=== PATIENT | female | born 1965 | race Hispanic/Latino ===

== ENCOUNTER 2018-09-24 23:49 | Inpatient (IN) | payer SELFPAY ==
[~2018-09-24] VITALS: Ht 157.5 cm; Wt 53.1 kg
[~2018-09-24 23:49] MED LIST: LISINOPRIL10 MG; TRUVADA 200 MG1 EACH; VIRAMUNE200 MG
--- OUTSIDE RECORDS SUMMARY | 2018-09-24 23:52 | XMS REPORT ---
Author Author Admin, Troy Organization [facility] Adult Medicine Address [address] [place] [address] Phone Allergies, Adverse Reactions, Alerts Allergy Name Reaction Description Start Date Severity Status Provider No Known Allergies Luzmaria Rivera COA Conditions or Problems Problem Name Problem Code Onset Date Status Entry Date Provider Comment Standard Description Annotate SPECIAL SCREENING EXAMINATION OTH SPEC VIRAL DZ V73.89 Active Migue Atwood MD Screening examination for other specified viral diseases Screening mammogram V76.12 Active Elena Cerna LAB REP Other screening mammogram Allergic rhinitis 477.9 Active Elena Cerna LAB REP Allergic rhinitis, cause unspecified Screening for colon cancer V76.51 Active Elena CIFUENTESP Screening for malignant neoplasms of colon Skin lesion, abdomen 709.9 Active Elena Dosspard LAB REP Unspecified disorder of skin and subcutaneous tissue Dietary surveillance and counseling V65.[address] Dietary surveillance and counseling Hypertriglyceridemia 272.1 Active Maria R Xiong MD Pure hyperglyceridemia Nicotine dependence Active Maria R Xiong MD Tobacco use disorder Passive smoke exposure Active Maria R Xiong MD Other specified personal history presenting hazards to health DEPRESSIVE DISORDER, UNSPECIFIED Active Edel Chavez NATIONAL SALES MANAGER ANXIETY DISORDER, UNSPECIFIED Active Edel Chavez NATIONAL SALES MANAGER Anxiety state, unspecified ADJUSTMENT DISORDER, W/ MIXED ANXIETY AND DEPRESSED MOOD Active Edel Chavez LPC Adjustment disorder with mixed disturbance of emotions and conduct LOW INCOME Active Edel Scott PENG Inadequate material resources Immunization update V15.9 Active India Cornejo DO Unspecified personal history presenting hazards to health VITAMIN D DEFICIENCY 268.9 Active Maria R Xiong MD Unspecified vitamin D deficiency Hyperopia - OU 367.0 Active Tyronenaomie Ochoa OD Hypermetropia 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.4 Active Tyronenaomie Ochoa OD Presbyopia Regular astigmatism, 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 Active Tyrone Ochoa OD Regular astigmatism Hyperlipidemia 272.4 Active Elena Cerna LAB REP Other and unspecified hyperlipidemia PREVENTIVE HEALTH CARE V70.0 Active Maria R Xiong MD Routine general medical examination at a health care facility ANXIETY 300.00 Active Maria R Xiong MD Anxiety state, unspecified HIV A2 042 2000 Active Maria R Xiong MD Human immunodeficiency virus [HIV] disease CD4 Pankaj unknown, VL unknown HYPERTENSION 401.1 Active Maria R Xiong MD Benign essential hypertension Skin lesion, breast 709.9 Inactive Elena Cerna LAB REP Unspecified disorder of skin and subcutaneous tissue Skin lesion, breast ICD-709.9 Inactive Elena Cerna LAB REP Hypercholesterolemia Inactive Elena Cerna LAB REP Hypercholesterolemia Inactive Elena Cerna LAB REP Breast pain, right ICD-611.71 Inactive Elena Cerna LAB REP Inconclusive mammogram ICD-793.82 Inactive Elena Dosspard LAB REP Well woman V72.31 Inactive Elena Cerna LAB REP Routine gynecological examination Well woman ICD-V72.31 Inactive Elena Cerna [facility] SPECIAL SCREENING EXAMINATION OTH SPEC VIRAL DZ V73.89 Inactive Migue Atwood MD Screening examination for other specified viral diseases SPECIAL SCREENING EXAMINATION OTH SPEC VIRAL DZ ICD-V73.89 Inactive Migue Atwood MD Depression/anxiety 311 Inactive Elena Cerna [facility] Depressive disorder, not elsewhere classified Depression/anxiety ICD-311 Inactive Elena Cerna [facility] Screening for hyperthyroidism ICD-V77.0 Inactive Elena Cerna [facility] Screening examination for other specified viral diseases V73.89 Inactive Migue Atwood MD Screening examination for other specified viral diseases Screening examination for other specified viral diseases ICD-V73.89 Inactive Migue Atwood MD Anxiety 300.00 Inactive Elena Cerna [facility] Anxiety state, unspecified Anxiety ICD-300.00 Inactive Elena Cerna [facility] Passive smoke exposure Inactive Elena Cerna [facility] Cellulitis, breast ICD-611.0 Inactive Elena Cerna [facility] Health screening ICD-V70.0 Inactive Elena Cerna [facility] BREAST CYST, RIGHT 610.0 Inactive Elena Cerna [facility] Solitary cyst of breast Superior areola, 12:00 BREAST CYST, RIGHT ICD-610.0 Inactive Elena Cerna [facility] ASTIGMATISM 367.20 Inactive Tyrone Ochoa OD Astigmatism, unspecified HYPEROPIA 367.0 Inactive Tyrone Ochoa OD Hypermetropia HYPERCHOLESTEROLEMIA 272.0 Inactive Maria R Xiong MD Pure hypercholesterolemia WELL WOMAN V72.31 Inactive Maria R Xiong MD Routine gynecological examination WELL WOMAN ICD-V72.31 Inactive Maria R Xiong MD TOBACCO USER 305.1 Inactive Elena CIFUENTESP Tobacco use disorder TOBACCO USER ICD-305.1 Inactive Elena CIFUENTESP Breast pain, right 611.71 Resolved Elena CIFUENTESP Mastodynia Inconclusive mammogram 793.82 Resolved Elena CIFUENTESP Inconclusive mammogram Screening for hyperthyroidism V77.0 Resolved Elena CIFUENTESP Screening for thyroid disorders Passive smoke exposure Resolved Elena CIFUENTESP Other specified personal history presenting hazards to health Cellulitis, breast 611.0 Resolved Elena CIFUENTESP Inflammatory disease of breast Health screening V70.0 Resolved Elena CIFUENTESP Routine general medical examination at a health care facility Medication List Medication Instructions Start Date Stop Date Generic Name NDC Status Provider Patient Instruction FLONASE ALLERGY RELIEF 50 MCG/ACT NASAL SUSPENSION 2 sprays each nostril every day FLUTICASONE PROPIONATE 92102553298 Active Elena CIFUENTESP Active LORATADINE 10 MG ORAL TABLET 1 By Mouth once a day as needed for allergies LORATADINE 44988562018 Active Elena CIFUENTESP Active BACTRIM DS 800-160 MG ORAL TABLET 1 tab by mouth twice a day TRIMETHOPRIM-SULFAMETHOXAZOLE 05190442559 Active Elena CIFUENTESP Active DESCOVY 200-25 MG ORAL TABLET 1 tab by mouth daily EMTRICITABINE- TENOFOVIR AF 45516073078 Active Elena CIFUENTESP Active LISINOPRIL 20 MG ORAL TABLET 1 by mouth every day LISINOPRIL 02700530601 Active Elena CIFUENTESP Active TIVICAY 50 MG ORAL TABLET 1 pill once a day with food (Citizen [place] label) DOLUTEGRAVIR SODIUM 44780124549 Active Elena MCKEON Active LIPITOR 10 MG ORAL TABLET 1 by mouth every pm ATORVASTATIN CALCIUM 84227023892 Active Elena MCKEON Active FENOFIBRATE 160 MG ORAL TABLET 1 By Mouth Every Day for triglycerides (Citizen [place] label) FENOFIBRATE 160 MG ORAL TABLET 897628 FENOFIBRATE Inactive LIPITOR 10 MG ORAL TABLET 1 by mouth every pm for cholesterol (Citizen [place] label) LIPITOR 10 MG ORAL TABLET 706176 ATORVASTATIN CALCIUM Inactive NICOTINE 21-14-7 MG/24HR TRANSDERMAL KIT NICOTINE 21-14-7 MG/24HR TRANSDERMAL KIT 170761 NICOTINE Inactive AMOXICILLIN-POT CLAVULANATE 875-125 MG ORAL TABLET 1 tablet orally twice daily x 10 days AMOXICILLIN-POT CLAVULANATE 875-125 MG ORAL TABLET 856883 AMOXICILLIN-POT CLAVULANATE Inactive BACTRIM DS 800-160 MG ORAL TABLET 1 tab by mouth twice a day x 10 days BACTRIM DS 800-160 MG ORAL TABLET 720253 TRIMETHOPRIM-SULFAMETHOXAZOLE Inactive IBUPROFEN 400 MG ORAL TABLET 1 by mouth every 8 hours as needed IBUPROFEN 400 MG ORAL TABLET 009458 IBUPROFEN Inactive LISINOPRIL 10 MG ORAL TABLET 1 by mouth every day LISINOPRIL 10 MG ORAL TABLET 516311 LISINOPRIL Inactive VITAMIN D (ERGOCALCIFEROL) 66229 UNIT ORAL CAPSULE 1 By Mouth Every week VITAMIN D (ERGOCALCIFEROL) 96215 UNIT ORAL CAPSULE 6905011 ERGOCALCIFEROL Inactive LIPITOR 20 MG ORAL TABLET 1 by mouth every pm LIPITOR 20 MG ORAL TABLET 792408 ATORVASTATIN CALCIUM Inactive VIRAMUNE XR 400 MG ORAL TABLET EXTENDED RELEASE 24 HOUR 1 By Mouth Every Day VIRAMUNE XR 400 MG ORAL TABLET EXTENDED RELEASE 24 HOUR NEVIRAPINE Inactive FENOFIBRATE 160 MG ORAL TABLET 1 By Mouth Every Day for triglycerides (Citizen [place] label) FENOFIBRATE 34447889937 No Longer Active Elena MCKEON Active LIPITOR 10 MG ORAL TABLET 1 by mouth every pm for cholesterol (Citizen [place] label) ATORVASTATIN CALCIUM 76154784614 No Longer Active Elena MCKEON Active NICOTINE 21-14-7 MG/24HR TRANSDERMAL KIT NICOTINE 10959095305 No Longer Active Maria R Xiong MD Active AMOXICILLIN-POT CLAVULANATE 875-125 MG ORAL TABLET 1 tablet orally twice daily x 10 days AMOXICILLIN-POT CLAVULANATE 36044098832 No Longer Active India Cornejo DO Active BACTRIM DS 800-160 MG ORAL TABLET 1 tab by mouth twice a day x 10 days TRIMETHOPRIM-SULFAMETHOXAZOLE 06767178735 No Longer Active India Cornejo DO Active IBUPROFEN 400 MG ORAL TABLET 1 by mouth every 8 hours as needed IBUPROFEN 83270081582 No Longer Active Maria R Xiong MD Active LISINOPRIL 10 MG ORAL TABLET 1 by mouth every day LISINOPRIL 56051152479 No Longer Active India Cornejo DO Active TRUVADA 200-300 MG ORAL TABLET 1 by mouth daily (Citizen [place] label) EMTRICITABINE-TENOFOVIR 97584170245 No Longer Active Maria R Xiong MD Active VITAMIN D (ERGOCALCIFEROL) 92325 UNIT ORAL CAPSULE 1 By Mouth Every week ERGOCALCIFEROL 08837028454 No Longer Active India Cornejo DO Active LIPITOR 20 MG ORAL TABLET 1 by mouth every pm ATORVASTATIN CALCIUM 09807997537 No Longer Active India Cornejo DO Active VIRAMUNE XR 400 MG ORAL TABLET EXTENDED RELEASE 24 HOUR 1 By Mouth Every Day NEVIRAPINE 26440037782 No Longer Active India Cornejo DO Active Advance Directives Directive Description Start Date DISCUSSED - NO DECISION MADE Immunizations Vaccine Administration Date Value Standard Description influenza immunization (Flu Vax) has been administered given influenza virus vaccine, unspecified formulation Tetanus toxoid, reduced diphtheria toxoid and acellular Pertussis vaccine, absorbed (TdaP) given given tetanus toxoid, reduced diphtheria toxoid, and acellular pertussis vaccine, adsorbed influenza immunization (Flu Vax) has been administered given influenza virus vaccine, unspecified formulation hepatitis B vaccine #1 given given hepatitis B vaccine, unspecified formulation influenza immunization (Flu Vax) has been administered given influenza virus vaccine, unspecified formulation influenza immunization (Flu Vax) has been administered given influenza virus vaccine, unspecified formulation PEDIATRIC PNEUMOCOCCAL VACCINE ([id number]) #1 given pneumococcal conjugate vaccine, 13 valent influenza immunization (Flu Vax) has been administered given influenza virus vaccine, unspecified formulation pneumococcal immunization administered given pneumococcal polysaccharide vaccine, 23 valent Vital Signs Date Name Value Unit Range Description blood pressure, diastolic 83 mm[Hg] BP valdez blood pressure, systolic 155 mm[Hg] BP sys height E&M 61 [in_us] Bdy height pulse rate E&M 89 /min Heart rate respiratory rate E&M 19 /min Resp rate temperature E&M 98.1 [degF] Body temperature weight E&M 114.60 [lb_av] Weight Measured blood pressure, diastolic 80 mm[Hg] BP valdez blood pressure, systolic 150 mm[Hg] BP sys height E&M 61 [in_us] Bdy height pulse rate E&M 67 /min Heart rate temperature E&M 97.0 [degF] Body temperature weight E&M 117 [lb_av] Weight Measured Diagnostic Results Date Name Value Unit Range Description Lab Report: CD4/CD8 Ratio Profile, Comp. Metabolic Panel (14), Lipid Dyer ... - Chemistry thyroid stimulating hormone, serum 1.850 u[iU]/mL 0.450-4.500 Lab Report: CD4/CD8 Ratio Profile, Comp. Metabolic Panel (14), Lipid Dyer ... - Serology HIV-1 antibody, western blot, serum Positive Office Visit: Annual / Family Planning Female #TR1 - Chemistry beta HCG, urine, semiquantitative negative Lab Report: Lipid Panel, Cardiovascular Report - Chemistry very low density lipoproteins 27 mg/dL 5-40 Lab Report: CD4/CD8 Ratio Profile, Comp. Metabolic Panel (14), Lipid Dyer ... - Chemistry hepatitis B surface antigen Negative Negative Lab Report: RNA, Real Time PCR (Graph) - Chemistry HIV-1 RNA (log 10) 2.041 npk47reyu/mL Lab Report: CD4/CD8 Ratio Profile, Comp. Metabolic Panel (14), RNA, Real ... - Chemistry chloride, serum 99 mmol/L 96-106 Lab Report: CD4/CD8 Ratio Profile, Comp. Metabolic Panel (14), Lipid Dyer ... - Microbiology hepatitis A antibody, total Positive Negative Lab Report: CD4/CD8 Ratio Profile, Comp. Metabolic Panel (14), RNA, Real ... - Chemistry urea nitrogen, blood 11 mg/dL 6-24 Lab Report: CD4/CD8 Ratio Profile, Comp. Metabolic Panel (14), Lipid Dyer ... - Serology HIV-1/HIV-2 Ab, serum Repeatedly Reactive Non Reactive Office Visit: Annual / Family Planning Female #TR1 - Urinalysis leukocyte esterase, urine, by dipstick negative Lab Report: QFT-TB Plus (Client Incubated) - Hematology Quantiferon Gold TB blood test for tuberculosis screening Negative Negative Lab Report: CD4/CD8 Ratio Profile, Comp. Metabolic Panel (14), RNA, Real ... - Hematology mean corpuscular hemoglobin concentration, RBC 33.5 G/DL % 31.5-35.7 erythrocyte (RBC) count 4.59 X10E6/UL 10*6/mm3 3.77-5.28 Office Visit: Annual / Family Planning Female #TR1 - Urinalysis nitrite, urine, semiquantitative negative Lab Report: CD4/CD8 Ratio Profile, Comp. Metabolic Panel (14), Lipid Dyer ... - Serology hepatitis C antibody, serum <0.1 0.0-0.9 Lab Report: CD4/CD8 Ratio Profile, Comp. Metabolic Panel (14), RNA, Real ... - Chemistry absolute CD8 [phone] Office Visit: Annual / Family Planning Female #TR1 - Urinalysis urine color yellow Lab Report: CD4/CD8 Ratio Profile, Comp. Metabolic Panel (14), RNA, Real ... - Chemistry Absolute Neutrophils 2.1 X10E3/UL 10*3/uL 1.4-7.0 Office Visit: Annual / Family Planning Female #TR1 - Urinalysis bilirubin, urine negative Lab Report: Lipid Panel, Cardiovascular Report - Chemistry LDL cholesterol, serum 115 mg/dL 0-99 Lab Report: CD4/CD8 Ratio Profile, Comp. Metabolic Panel (14), RNA, Real ... - Chemistry urea nitrogen/creatinine ratio, serum 14 9-23 Lab Report: CD4/CD8 Ratio Profile, Comp. Metabolic Panel (14), RNA, Real ... 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 Metabolic Panel (14), RNA, Real ... - Hematology monocytes as percent of blood leukocytes 9 % Not Estab. Lab Report: CD4/CD8 Ratio Profile, Comp. Metabolic Panel (14), RNA, Real ... - Chemistry albumin/globulin ratio, serum 1.8 1.2-2.2 creatinine, serum 0.77 mg/dL 0.57-1.00 Lab Report: Lipid Panel, Cardiovascular Report - Chemistry cholesterol, serum 181 mg/dL 100-199 Lab Report: CD4/CD8 Ratio Profile, Comp. Metabolic Panel (14), RNA, Real ... - Chemistry bilirubin, serum, total <0.2 mg/dL mg/dL 0.0-1.2 Lab Report: Pap IG, rfx HPV ASCU - Lab Human Papillomavirus test result HPVNotTested Lab Report: CD4/CD8 Ratio Profile, Comp. Metabolic Panel (14), RNA, Real ... - Hematology Eosinophil Absolute Count 0.1 X10E3/UL 10*3/uL 0.0-0.4 Lab Report: CD4/CD8 Ratio Profile, Comp. Metabolic Panel (14), Lipid Dyer ... - Lab chlamydia DNA probe Negative Negative Office Visit: Annual / Family Planning Female #TR1 - Urinalysis appearance, urine clear blood in urine (hemoglobin) by dipstick 1+ Lab Report: CD4/CD8 Ratio Profile, Comp. Metabolic Panel (14), RNA, Real ... - Chemistry aspartate aminotransferase (SGOT), serum 28 U/L 0-40 Lab Report: CD4/CD8 Ratio Profile, Comp. Metabolic Panel (14), RNA, Real ... - Hematology red blood cell distribution width 12.2 % 12.3-15.4 leukocyte count, blood 4.2 X10E3/UL 10*3/mm3 3.4-10.8 Office Visit: Annual / Family Planning Female #TR1 - Urinalysis pH, urine, semiquantitative 5.0 Lab Report: CD4/CD8 Ratio Profile, Comp. Metabolic Panel (14), RNA, Real ... - Chemistry potassium, serum 3.7 mmol/L 3.5-5.2 albumin, serum 4.6 g/dL 3.5-5.5 immature granulocytes, percentage of total cells, blood 0 % Not Estab. Office Visit: Adult Followup RTC #Tx1: Flu shot and pneumovax - Hematology T-helper cells (CD4) count, lowest absolute value 301 Lab Report: CD4/CD8 Ratio Profile, Comp. Metabolic Panel (14), RNA, Real ... - Hematology lymphocyte count, blood, automated 1.7 X10E3/UL 10*3/mm3 0.7-3.1 hematocrit, blood 40.0 % 34.0-46.6 Lab Report: CD4/CD8 Ratio Profile, Comp. Metabolic Panel (14), Lipid Dyer ... - Microbiology Neisseria gonorrhoeae DNA probe Negative Negative Lab Report: CD4/CD8 Ratio Profile, Comp. Metabolic Panel (14), RNA, Real ... - Chemistry sodium, serum 138 mmol/L 134-144 Lab Report: CD4/CD8 Ratio Profile, Comp. Metabolic Panel (14), Lipid Dyer ... - Serology toxoplasma gondii antibody, IgG <3.0 0.0-7.1 Lab Report: CD4/CD8 Ratio Profile, Comp. Metabolic Panel (14), RNA, Real ... - Hematology neutrophils as percent of blood leukocytes 50 % Not Estab. basophils as percent of blood leukocytes 0 % Not Estab. Internal Correspondence: Pre-Visit Planning 07/19/2013 @ 12:30pm Confirmed - Other List of providers caring for patient Maria R Xiong MD, Nehemiah MCKEON, Inga ENRIQUEZ, Mili Hobson MA, Gary Peañ MA, Jovanna Ayala MA, Jeanne Galindo MA, Jaison Martin MA Lab Report: CD4/CD8 Ratio Profile, Comp. Metabolic Panel (14), RNA, Real ... - Serology HIV-1RNA, serum, by PCR, quantitative 07339 {Copies}/mL Office Visit: Annual / Family Planning Female #TR1 - Urinalysis protein, urine, semiquantitative (dipstick) negative Lab Report: CD4/CD8 Ratio Profile, Comp. Metabolic Panel (14), RNA, Real ... - Serology rapid plasma reagin antibody, serum Non Reactive Non Reactive Lab Report: CD4/CD8 Ratio Profile, Comp. Metabolic Panel (14), RNA, Real ... - Chemistry CD4/CD8 ratio 0.47 0.92-3.72 carbon dioxide, venous blood 24 mmol/L 20-29 Lab Report: CD4/CD8 Ratio Profile, Comp. Metabolic Panel (14), Lipid Dyer ... - Serology hepatitis B core antibody, total Negative Negative Lab Report: Lipid Panel, Cardiovascular Report - Chemistry triglyceride, serum, fasting 135 mg/dL 0-149 Lab Report: CD4/CD8 Ratio Profile, Comp. Metabolic Panel (14), RNA, Real ... - Chemistry calcium, serum 9.7 mg/dL 8.7-10.2 alanine aminotransferase (SGPT), serum 29 U/L 0-32 Lab Report: CD4/CD8 Ratio Profile, Comp. Metabolic Panel (14), RNA, Real ... - Hematology mean corpuscular hemoglobin, RBC 29.2 pg 26.6-33.0 Lab Report: CD4/CD8 Ratio Profile, Comp. Metabolic Panel (14), RNA, Real ... - Chemistry protein, total, serum 7.2 g/dL 6.0-8.5 alkaline phosphatase, serum 77 U/L 39-117 Lab Report: CD4/CD8 Ratio Profile, Comp. Metabolic Panel (14), RNA, Real ... - Hematology T-helper cells (CD4) as percent of blood lymphocytes 26.9 % 30.8-58.5 hemoglobin, blood 13.4 g/dL 11.1-15.9 T-suppressor cells (CD8) as percent of blood lymphocytes 57.0 % 12.0-35.5 lymphocytes as percent of blood leukocytes 40 % Not Estab. Lab Report: CD4/CD8 Ratio Profile, Comp. Metabolic Panel (14), Lipid Dyer ... - Chemistry hemoglobin A1C, blood, as % of total hemoglobin 5.8 % 4.8-5.6 Office Visit: Annual / Family Planning Female #TR1 - Urinalysis glucose, urine, semiquantitative negative Lab Report: CD4/CD8 Ratio Profile, Comp. Metabolic Panel (14), RNA, Real ... - Genetics/fertility eGFR if 102 mL/min/1.73m2 >59 Lab Report: CD4/CD8 Ratio Profile, Comp. Metabolic Panel (14), RNA, Real ... - Hematology basophil count, absolute 0.0 x10E3/uL 0.0-0.2 Lab Report: CD4/CD8 Ratio Profile, Comp. Metabolic Panel (14), RNA, Real ... - Chemistry globulin, serum 2.6 1.5-4.5 Estimated Glomerular Filtration Rate (calc) 88 mL/min/1.73m2 >59 Lab Report: CD4/CD8 Ratio Profile, Comp. Metabolic Panel (14), Lipid Dyer ... - Chemistry vitamin D 25-hydroxy, serum 40.2 ng/mL 30.0-100.0 Lab Report: CD4/CD8 Ratio Profile, Comp. Metabolic Panel (14), Lipid Dyer ... - Serology hepatitis B surface antibody Non Reactive Lab Report: CD4/CD8 Ratio Profile, Comp. Metabolic Panel (14), RNA, Real ... - Hematology eosinophils as percent of blood leukocytes 1 % Not Estab. Lab Report: CD4/CD8 Ratio Profile, Comp. Metabolic Panel (14), RNA, Real ... - Chemistry blood glucose, random 100 mg/dL 65-99 Office Visit: Annual / Family Planning Female #TR1 - Urinalysis urobilinogen, urine, semiquantitative (dipstick) negative Lab Report: CD4/CD8 Ratio Profile, Comp. Metabolic Panel (14), RNA, Real ... - Hematology monocyte count, blood, automated 0.4 X10E3/UL 10*3/uL 0.1-0.9 T-helper cells (CD4) count 457 /UL uL [phone] Lab Report: CD4/CD8 Ratio Profile, Comp. Metabolic Panel (14), Lipid Dyer ... - Genetics/fertility HIV-1 gp41 antibody, serum Present Lab Report: CD4/CD8 Ratio Profile, Comp. Metabolic Panel (14), RNA, Real ... - Hematology platelet count 146 X10E3/UL 10*3/mm3 150-379 Office Visit: Annual / Family Planning Female #TR1 - Urinalysis ketones, urine, by test strip negative Encounters Date Encounter Provider Code Facility 18:02:30 PRESS OPERATOR HEAVY DUTY Ofc Vst, Est Level IV Elena CIFUENTESP CPT-36564 [facility] 07:00:52 CDT Ofc Vst, Est Level IV Elena CIFUENTESP CPT-38485 [facility] Adult [facility] 07:03:39 CDT Ofc Vst, Est Level IV Elena CIFUENTESP CPT-08898 [facility] 16:13:26 CDT Est Patient Exp Problem - 35916 Maria R Xiong MD CPT-35957 [facility] Adult [facility] 14:40:26 CDT Est Patient Exp Problem - 68646 Charles Bravo MD CPT-26661 [facility] 21:14:24 CDT Ofc Vst, Est Level IV Elena CIFUENTESP CPT-08535 [facility] Adult [facility] 07:36:41 PRESS OPERATOR HEAVY DUTY Ofc Vst, Est Level IV Elena CIFUENTESP CPT-53688 [facility] 11:29:23 CDT Ofc Vst, Est Level III India Cornejo CPT-93950 [facility] Adult [facility] 00:38:40 CDT Ofc Vst, Est Level III India Cornejo CPT-84803 [facility] Adult [facility] 14:02:19 PRESS OPERATOR HEAVY DUTY Est Patient Exp Problem - 85115 India Cornejo CPT-39340 [facility] Adult [facility] 11:46:54 PRESS OPERATOR HEAVY DUTY Est Patient Exp Problem - 14011 India Cornejo CPT-08725 [facility] 14:08:58 CDT Ofc Vst, Est Level III Mabel Jiménez MD CPT-42148 [facility] Adult [facility] 15:30:32 CDT Est Patient Nurse - Only Visit - 55125 Kathi Zapata RN CPT-79709 [facility] 18:02:41 CDT Ofc Vst, Est Level III Elena CIFUENTESP CPT-12641 [facility] 13:02:04 PRESS OPERATOR HEAVY DUTY Ofc Vst, Est Level III Maria R Xiong MD CPT-85968 [facility] 12:23:14 CDT Ofc Vst, Est Level III Maria R Xiong MD CPT-51461 [facility] 10:42:31 PRESS OPERATOR HEAVY DUTY Ofc Vst, Est Level III Maria R Xiong MD CPT-24699 [facility] 11:48:13 PRESS OPERATOR HEAVY DUTY Ofc Vst, Est Level III Maria R Xiong MD CPT-50282 [facility] Adult Medicine Procedures Code Procedure Name Date Entry Date Standard Description CPT-S9470 Nutrition Counseling- Registered Dietitian 11:19:56 PRESS OPERATOR HEAVY DUTY CPT-70234 Dispensing Visit (UNLIVSTED OPHTHALMOLOGICAL SERVICE/PROCEDURE) 10:29:19 CDT CPT-68718 Est Patient Comprehensive Opt - 66159 11:25:12 CDT CPT-63311 Est Patient Intermediate Opt - 66750 10:59:59 CDT CPT-35235 Fluzone 0.5 ml (Influenza Vacc 3 years plus IM) 10:59:28 PRESS OPERATOR HEAVY DUTY CPT-12734 Psychotherapy 45 (38-52*) min - 40239 (with patient and/or family member) 11:27:55 PRESS OPERATOR HEAVY DUTY CPT-60906 Psychotherapy 45 (38-52*) min - 38626 (with patient and/or family member) 10:15:04 CDT CPT-95397 [facility] 13:05:12 CDT CPT-91167 Psychotherapy 45 (38-52*) min - 11325 (with patient and/or family member) 10:55:35 CDT CPT-S9470 Nutrition Counseling- Registered Dietitian 07:03:45 CDT CPT-09154 Nutrition Initial Assessment Ind (15 Min) - 66806 09:57:15 PRESS OPERATOR HEAVY DUTY CPT-48480 Dispensing Visit (Non-Billable) 16:57:43 PRESS OPERATOR HE[employer]Y D[employer]Y CPT-65014 Psychotherapy 45 (38-52*) min - 06576 (with patient and/or family member) 11:36:26 PRESS OPERATOR HEAVY DUTY CPT-42544 INFLUENZA VACCINE QUADRIVALENT 3 YRS PLUS IM 13:26:50 CDT CPT-52252 Psychotherapy 45 (38-52*) min - 13222 (with patient and/or family member) 12:28:35 CDT CPT-98631 Psychotherapy 45 (38-52*) min - 90657 (with patient and/or family member) 11:44:03 CDT CPT-32174 Psychotherapy 45 (38-52*) min - 25290 (with patient and/or family member) 10:10:05 CDT CPT-35421 Psychotherapy 45 (38-52*) min - 73569 (with patient and/or family member) 09:30:12 CDT CPT-66496 Hepatitis B - Adult 13:00:41 PRESS OPERATOR HE[employer]Y DUTY CPT-59574 Psychotherapy 45 (38-52*) min - 97138 (with patient and/or family member) 13:43:00 CDT CPT-02101 Est Patient Comprehensive Opt - 30236 11:19:44 CDT CPT-06098 Est Patient Intermediate Opt - 05870 10:25:16 CDT CPT-61443 Diagnostic evaluation (no medical) - 98759 12:17:47 PRESS OPERATOR HEAVY DUTY CPT-63749 INFLUENZA VACCINE QUADRIVALENT 3 YRS PLUS IM 13:00:41 PRESS OPERATOR HEAVY DUTY CPT-14203 Hepatitis B - Adult 13:00:41 PRESS OPERATOR HEAVY DUTY CPT-64047 Dispensing Visit (UNLIVSTED OPHTHALMOLOGICAL SERVICE/PROCEDURE) 11:34:07 PRESS OPERATOR HEAVY DUTY CPT-92283 Est Patient Intermediate Opt - 66485 10:36:58 PRESS OPERATOR HEAVY DUTY CPT-95997 Est Patient Intermediate Opt - 76352 16:21:33 PRESS OPERATOR HEAVY DUTY CPT-12831 Prevnar (PCV13) IM 11:10:31 PRESS OPERATOR HEAVY DUTY CPT-31838 Influenza - Adult - Injection 11:10:31 PRESS OPERATOR HEAVY DUTY CPT-38509 Handling of specimen for transfer 10:28:02 CDT CPT-19039 Venipuncture 10:28:02 CDT CPT-55381 Influenza - Adult - Injection 13:02:04 PRESS OPERATOR HEAVY DUTY CPT-86703 Pneumovax Vaccine 13:02:04 PRESS OPERATOR HEAVY DUTY CPT-02983 Admin of Vaccine - Injection - Each Add'l 13:02:04 PRESS OPERATOR HEAVY DUTY CPT-79466 Admin of Vaccine - Injection - 1 13:02:04 PRESS OPERATOR HEAVY DUTY CPT-86767 Dispensing Visit (UNLIVSTED OPHTHALMOLOGICAL SERVICE/PROCEDURE) 15:59:21 CDT CPT-14612 New Patient Intermediate Opt - 33494 10:55:33 CDT CPT-67566 Xray - Chest - PA & Lat - InHouse 15:00:17 PRESS OPERATOR HEAVY DUTY CPT-44507 Handling of specimen for transfer 12:43:21 PRESS OPERATOR HEAVY DUTY CPT-76086 Venipuncture 12:43:21 PRESS OPERATOR HEAVY DUTY
[2018-09-25] VITALS (8 sets, daily range): BP systolic 106–162; BP diastolic 64–87
[2018-09-25] MEDS ORDERED: DONNATAL/LIDOCAINE/MAALOX 30 ML SUSP PO ONE (01:15)
[2018-09-25 01:32] LABS: AMPHETAMINES SCREEN,URINE NEGATIVE (NEGATIVE); BENZODIAZEPINES SCREEN,URINE NEGATIVE (NEGATIVE); PHENCYCLIDINE SCREEN,URINE NEGATIVE (NEGATIVE)
[2018-09-25] MEDS ORDERED: MAGNESIUM/ALUMINUM/SIMETHICONE 30 ML UDC ONE (01:33)
[2018-09-25] MEDS ORDERED: LIDOCAINE VISC 2% SOLN 15 ML UDC ONE (01:33)
[2018-09-25] MEDS ORDERED: BELLADONNA ALK/PHENOBARBITAL 5 ML UDC ONE (01:33)
[2018-09-25] MEDS ORDERED: SIMETHICONE 80 MG CHEW ONE (01:34)
[2018-09-25] MEDS ORDERED: SIMETHICONE 80 MG CHEW PO PRN ×2 (01:45)
[2018-09-25] MEDS ORDERED: KETOROLAC TROMETHAMINE 60 MG/2 ML VIAL IM ONE (02:00)
[2018-09-25 02:04] LABS: CLARITY,URINE HAZY (CLEAR); COLOR,URINE YELLOW (YELLOW); LEUKOCYTE ESTERASE ,URINE NEGATIVE (NEGATIVE); NITRITE,URINE NEGATIVE (NEGATIVE)
[2018-09-25 02:05] LABS: BACTERIA,URINE MODERATE /HPF; BILIRUBIN,URINE NEGATIVE (NEGATIVE); KETONES,URINE NEGATIVE (NEGATIVE); PROTEIN,URINE DIPSTICK NEGATIVE (NEGATIVE); RBC,URINE 21-50 /HPF (0-5); URINE UROBILINOGEN 0.2 mg/dL (0.2 - 1)
[2018-09-25 02:06] LABS: EPITHELIAL CELLS,URINE MANY /LPF
[2018-09-25] MEDS ORDERED: KETOROLAC TROMETHAMINE 30 MG/ML VIAL IV STA (02:06)
[2018-09-25] MEDS ORDERED: KETOROLAC TROMETHAMINE 60 MG/2 ML VIAL ONE (02:09)
[2018-09-25 02:40] LABS: BASOPHILS % 0.2 % (0.0-1.0); EOSINOPHILS % 0.5 % (0.0-6.0); HEMATOCRIT 38.7 % (34.2-44.1); HEMOGLOBIN 13.3 g/dL (12.0-16.0); LYMPHOCYTES # (AUTO) 0.9 (1.0-3.2); MEAN CORPUSCULAR HEMOGLOBIN 29.2 pg (28-32); MEAN CORPUSCULAR HGB CONC 34.4 g/dL (31-35); MEAN CORPUSCULAR VOLUME 84.9 fL (81-99); MONOCYTES # (AUTO) 0.3 (0.2-0.8); MONOCYTES % 5.7 % (4.4-11.3); NEUTROPHILS # (AUTO) 3.2 (2.1-6.9); NEUTROPHILS % 73.4 % (38.7-80.0); PLATELET COUNT 89 x10e3/uL (140-360); RED BLOOD COUNT 4.56 x10e6/uL (3.6-5.1); RED CELL DISTRIBUTION WIDTH 13.9 % (11.7-14.4)
[2018-09-25] MEDS: SODIUM CHLORIDE 0.9% 1000ML 1,000 ML IV SCH ×3 (03:10→17:04)
[2018-09-25 03:13] LABS: ALANINE AMINOTRANSFERASE 49 IU/L (0-55); ALBUMIN 4.1 g/dL (3.5-5.0); ALBUMIN/GLOBULIN RATIO 1.1 (0.8-2.0); ALKALINE PHOSPHATASE 81 IU/L (40-150); AMYLASE 74 U/L (25-125); ANION GAP 13.6 mmol/L (8-16); BLOOD UREA NITROGEN 13 mg/dL (7-26); BUN/CREATININE RATIO 16 (6-25); CALCIUM 9.8 mg/dL (8.4-10.2); CARBON DIOXIDE 24 mmol/L (22-29); CHLORIDE 101 mmol/L (98-107); CREATININE, SERUM 0.82 mg/dL (0.57-1.11); EST GLOMERULAR FILTRATION RATE > 60 ML/MIN (60-); GLUCOSE 140 mg/dL (74-118); LIPASE 33 U/L (8-78); POTASSIUM 3.6 mmol/L (3.5-5.1); SODIUM 135 mmol/L (136-145)
[2018-09-25] MEDS ORDERED: PHENAZOPYRIDINE HCL 100 MG TAB PO ONE (03:45)
[2018-09-25] MEDS: CEFTRIAXONE SOD 1 GM/NS 50 ML 50 ML IV SCH (03:46)
[2018-09-25] MEDS ORDERED: PYRIDIUM100 MG PO (04:09)
[2018-09-25] MEDS ORDERED: BACTRIM DS TAB1 EACH PO (04:09)
--- NOTE | 2018-09-25 04:31 | Diagnostic Imaging Report ---
CT Abdomen and Pelvis without contrast INDICATION: Abdominal pain after eating chocolate. TECHNIQUE: Thin collimation axial images obtained from the diaphragm to the level of the pubic symphysis without nonionic intravenous contrast. Dose reduction techniques used: Automated exposure control, adjustment of the mAs and/or kVp according to patient size, standardized low-dose protocol, and/or iterative reconstruction technique. RADIATION DOSE: Total DLP: 169.18 mGy*cm Estimated effective dose: (DLP x 0.015 x size factor) mSv CTDIvol has been reviewed. It is below the limits set by the Radiation Protocol Committee (RPC). COMPARISON: None. ABDOMEN FINDINGS: Lung Bases: Minimal air trapping suggestive of small airways disease.. The visualized portion of the mediastinum is normal. Liver: Mild steatosis. No mass. Gallbladder: Present. Multiple calcified gallstones measuring up to 2 cm. No gallbladder wall thickening. No ductal dilatation. Pancreas: Normal attenuation without mass. Spleen: Normal size without mass. Adrenal Glands: No evidence for mass. Kidneys: Right: No renal calculus. No cortical mass or hydronephrosis Left: No renal calculus. No cortical mass or hydronephrosis Lymph Nodes: No enlarged abdominal or retroperitoneal lymph nodes. Aorta: Normal in diameter. PELVIS FINDINGS: Bowel: Stomach: Normal. Small Bowel: Small bowel loops in the lower pelvis are distended with semisolid enteric contents. Adjacent small bowel mesentery is not inflamed. There is no clear transition point.. Large Bowel: Normal in caliber with normal wall thickness. Appendix: Normal. Bladder: Normal. Ureters: No ureteral dilatation or calculus.. The uterus is present and normal in morphology. No adnexal mass. Peritoneum/retroperitoneum: No free fluid or fluid collection. Bones: Mild degenerative changes of the spine at L5-S1. A few scattered bone islands in the right hip. IMPRESSION: 1. Mildly distended small bowel loops with semisolid enteric contents suggestive of very low-grade partial small bowel obstruction. Normal appendix. 2. Cholelithiasis. No biliary ductal dilatation. Mild steatosis. 3. No evidence of renal calculus or obstructive uropathy. Signed by: Dr. Solomon Snell MD on 09/25/2018 4:28 AM
[2018-09-25] MEDS ORDERED: BENZOCAINE/TETRACAINE/BUTAMBEN AERO SPRAY 56 GM CAN ONE (04:56)
[2018-09-25] MEDS ORDERED: CEFTRIAXONE SOD 1 GM/NS 50 ML 50 ML IV SCH (05:00)
--- NOTE | 2018-09-25 05:00 | NUR ---
to room to insert ngt per md order. ngt measured and pt instructed on procedure. attempted to insert ngt to l nare. pt pulled ngt tube out and refused second attempt. pt noted c slight of bleeding from nose. pt provided c wipes no bleeding noted at this time. md informed.
[2018-09-25] MEDS: SODIUM CHLORIDE 0.9% 250ML IRRIG IR SCH ×5 (05:05→21:00)
--- OUTSIDE RECORDS SUMMARY | 2018-09-25 05:18 | XMS REPORT ---
Author [facility] Address Unknown Phone Unavailable Care Team Providers Care Medicine Tech Name Role Phone Rosales PATRICK Unavailable Unavailable Problems This patient has no known problems. Allergies, Adverse Reactions, Alerts This patient has no known allergies or adverse reactions. Medications This patient has no known medications. Results Test Description Test Time Test Comments Text Results Atomic Results Result Comments CT ABDOMEN/PELVIS WO 2018-09-25 04:24:00 [place] [address] Patient Name: VAISHALI DAMIAN MR #: [id number] : 1965 Age/Sex: 53/F Req #: [id number] Adm Physician: Ordered by: YARA PATRICK MD Report #: [id number] Location: ER Room/Bed: Procedure: [id number] CT/CT ABDOMEN/PELVIS WO Exam Date: Exam Time: REPORT STATUS: Signed CT Abdomen and Pelvis without contrast INDICATION: Abdominal pain after eating chocolate. TECHNIQUE: Thin collimation axial images obtained from the diaphragm to the level of the pubic symphysis without nonionic intravenous contrast. Dose reduction techniques used: Automated exposure control, adjustment of the mAs and/or kVp according to patient size, standardized low-dose protocol, and/or iterative reconstruction technique. RADIATION DOSE: Total DLP: 169.18 mGy*cm Estimated effective dose: (DLP x 0.015 x size factor) mSv CTDIvol has been reviewed. It is below the limits set by the Radiation Protocol Committee (RPC). COMPARISON: None. ABDOMEN FINDINGS: Lung Bases: Minimal air trapping suggestive of small airways disease.. The visualized portion of the mediastinum is normal. Liver: Mild steatosis. No mass. Gallbladder: Present. Multiple calcified gallstones measuring up to 2 cm. No gallbladder wall thickening. No ductal dilatation. Pancreas: Normal attenuation without mass. Spleen: Normal size without mass. Adrenal Glands: No evidence for mass. Kidneys: Right: No renal calculus. No cortical mass or hydronephrosis Left: No renal calculus. No cortical mass or hydronephrosis Lymph Nodes: No enlarged abdominal or retroperitoneal lymph nodes. Aorta: Normal in diameter. PELVIS FINDINGS: Bowel: Stomach: Normal. Small Bowel: Small bowel loops in the lower pelvis are distended with semisolid enteric contents. Adjacent small bowel mesentery is not inflamed. There is no clear transition point.. Large Bowel: Normal in c aliber with normal wall thickness. Appendix: Normal. Bladder: Normal. Ureters: No ureteral dilatation or calculus.. The uterus is present and normal in morphology. No adnexal mass. Peritoneum/retroperitoneum: No free fluid or fluid collection. Bones: Mild degenerative changes of the spine at L5-S1. A few scattered bone islands in the right hip. IMPRESSION: 1. Mildly distended small bowel loops with semisolid enteric contents suggestive of very low-grade partial small bowel obstruction. Normal appendix. 2. Cholelithiasis. No biliary ductal dilatation. Mild steatosis. 3. No evidence of renal calculus or obstructive uropathy. Signed by: Dr. Kamlesh Snell MD on 09/25/2018 4:28 AM Dictated By: KAMLESH SNELL MD 7 Transcribed By: HOWARD on 09/25/18427 COPY TO: YARA PATRICK MD
[2018-09-25] MEDS ORDERED: LISINOPRIL20 MG PO (05:20)
[2018-09-25] MEDS ORDERED: FENOFIBRATE160 MG PO (05:20)
[2018-09-25] MEDS ORDERED: ATORVASTATIN CA10 MG PO (05:20)
[2018-09-25] MEDS ORDERED: Descovy PO (05:20)
[2018-09-25] MEDS ORDERED: TIVICAY PO (05:20)
--- NOTE | 2018-09-25 06:03 | NUR ---
patient received to room 297 via stretcher from the er. bp143/85 hr67 temp96.5 rr18 02 sats 98%. pain minimal at this time.
--- NOTE | 2018-09-25 07:50 | NUR ---
RECEIVED REPORT FROM SERVICE AIDE NURSE. ADMISSION COMPLETED BY RN. PATIENT IN STABLE CONDITION WITH NO S/S OF RESPIRATORY DISTRESS. PATIENT C/O OF AB PAIN 01/14- TORADOL ADMINISTERED TO PATIENT. IV FLUIDS INFUSING. NG TUBE PLACED TO RIGHT NARE AT 0735- KUB ORDERED. CALL LIGHT IS WITHIN REACH OF PATIENT, PATIENT INSTRUCTED TO CALL FOR ASSISTANCE NEEDED.
[2018-09-25] MEDS: KETOROLAC TROMETHAMINE 30 MG/ML VIAL IV PRN ×2 (07:56→17:33)
--- NOTE | 2018-09-25 09:43 | Diagnostic Imaging Report ---
Exam: KUB-one view Clinical History: NG tube placement. Comparison: CT abdomen/pelvis 09/25/2018. Findings: Enteric tube terminates in stomach, the side-port is near the GE junction. Paucity of bowel gas within the small bowel, limiting evaluation for obstruction. Bowel gas is seen within the proximal colon. No acute bony abnormality. Impression: Enteric tube terminates in the stomach, the side port is near the GE junction. Suggest advancement by approximately 4 cm. Paucity of bowel gas within the small bowel, limiting evaluation for obstruction. Please refer to the report from CT abdomen/pelvis from 09/25/2018. Signed by: Dr. Erik Garcia MD on 09/25/2018 9:40 AM
[2018-09-25 10:17] LABS: PLATELET ESTIMATE MODERATELY DECREASED; PLATELET MORPHOLOGY COMMENT NORMAL
--- NOTE | 2018-09-25 11:03 | Diagnostic Imaging Report ---
Exam: KUB-one view Clinical History: NG tube placement. Comparison: CT abdomen/pelvis 09/25/2018. KUB 09/25/2018 at 8AM. Findings: Interval advancement of enteric tube, which terminates in the stomach, the side port is below the GE junction. Paucity of bowel gas within the small bowel, limiting evaluation for obstruction. Bowel gas is seen within the colon. No acute bony abnormality. Impression: Interval advancement of enteric tube, which terminates in the stomach, the side port is below the GE junction. Paucity of bowel gas within the small bowel, limiting evaluation for obstruction. Bowel gas is seen in the colon. Please refer to the report from CT abdomen/pelvis from 09/25/2018. Signed by: Dr. Erik Garcia MD on 09/25/2018 11:00 AM
--- NOTE | 2018-09-25 14:25 | Consultation ---
DATE OF CONSULTATION: 09/25/2018 GI Consultation Note REASON FOR CONSULTATION: Small bowel obstruction. HISTORY OF PRESENT ILLNESS: This is a 53-year-old female with past medical history of hypertension, who presents to the hospital with acute onset of abdominal pain and CT scan that shows partial small obstruction. The patient denies any previous history of this. She had an NG tube placed last night and reports interval resolution of her abdominal pain symptoms. She denies any recent sick contacts. States that she has been eating a normal diet without any strange foods. The patient denies any previous episodes of obstruction. She did have a concern for gastritis sometime ago, but these symptoms seem unrelated. PAST MEDICAL HISTORY: 1. Hypertension. 2. High cholesterol. PAST SURGICAL HISTORY: No relevant GI surgery. FAMILY HISTORY: Negative for GI malignancies. SOCIAL HISTORY: Negative for alcohol, tobacco, or illicit drug use. REVIEW OF SYSTEMS: A 12-point review of systems was completed with the patient, pertinent positives were included in the HPI. PHYSICAL EXAMINATION: VITAL SIGNS: Temp 97.5, blood pressure 162/87, pulse rate is 66, and saturating 97% on room with respiratory rate of 18. GENERAL: This is a well-developed, well-nourished, thin female, resting comfortably in bed. HEENT: Head is normocephalic and atraumatic. Oropharynx is clear. Neck is supple. No palpable thyromegaly or mass. CARDIOVASCULAR: Regular rate and rhythm. No murmurs, gallops, or rubs. PMI is nondisplaced. LUNGS: Clear to auscultation with equal chest expansion. ABDOMEN: Soft with quite bowel sounds and nondistended. No tenderness to palpation. EXTREMITIES: 2+ pulses. No clubbing, cyanosis, or edema. NEURO: Nonfocal. PSYCH: She is euthymic. LABORATORY DATA: White blood cell count 4.3, hemoglobin 13.3, hematocrit of 38.7, and platelet count of 89. Sodium 135, potassium 3.6, chloride 101, bicarb 24, BUN of 13, creatinine of 0.2, AST of 35, ALT of 49, alkaline phosphatase of 81, albumin is 4.1. UA was dirty. UDS was negative. IMAGING: CT of abdomen and pelvis dated 09/24/2018: 1. Mild distended small bowel loops. 2. Cholelithiasis. ASSESSMENT AND PLAN: This is a 53-year-old female, who presents to the hospital with complaints of partial small bowel obstruction: 1. Partial small bowel obstruction. The patient has an NG tube in place with interval resolution of symptoms. We will recheck KUB in the morning. Hopefully, with this, it will show some interval improvement in her partial small bowel obstruction and she can advance her diet. 2. Thrombocytopenia. The patient has thrombocytopenia with only mild hepatic steatosis, unsure etiology of this. We will defer to the primary service for further workup. MD WAYNE Goldsmith/MODL /[id number]
--- NOTE | 2018-09-25 19:03 | NUR ---
PATIENT IS IN STABLE CONDITION WITH NO S/S OF RESPIRATORY DISTRESS. PAIN MEDICATION GIVEN TO THE PATIENT RECENTLY- PATIENT STATES NO PAIN AT THIS TIME. NG TUBE CONNECTED TO LOW SUCTION: OUTPUT OF 250CC FOR DAYSHIFT. IV FLUIDS INFUSING. CALL LIGHT IS WITHIN REACH, PATIENT INSTRUCTED TO CALL FOR ASSISTANCE NEEDED. BEDSIDE REPORT GIVEN TO ONCOMING NURSE.
[2018-09-26] VITALS (7 sets, daily range): BP systolic 120–140; BP diastolic 66–74
[2018-09-26] MEDS: SODIUM CHLORIDE 0.9% 250ML IRRIG IR SCH ×6 (00:51→20:57)
[2018-09-26] MEDS: KETOROLAC TROMETHAMINE 30 MG/ML VIAL IV PRN (00:52)
[2018-09-26] MEDS: CEFTRIAXONE SOD 1 GM/NS 50 ML 50 ML IV SCH (03:10)
[2018-09-26] MEDS: SODIUM CHLORIDE 0.9% 1000ML 1,000 ML IV SCH ×2 (03:15→14:22)
--- NOTE | 2018-09-26 07:12 | History and Physical ---
HISTORY OF PRESENT ILLNESS: This is a 53-year-old female with history of HIV, history of hypertension, history of hyperlipidemia, was in usual state of health until the patient started to have abdominal pain one day prior to admission after eating chocolate and the patient's abdominal pain got out of control. The patient came to the emergency room, was found to have small-bowel obstruction. PAST MEDICAL HISTORY: History of hypertension, history of hyperlipidemia and history of HIV. PAST SURGICAL HISTORY: No relevant gastric surgeries. FAMILY HISTORY: Positive for hypertension, hyperlipidemia, and diabetes mellitus. SOCIAL HISTORY: No EtOH. No IV drug abuse. REVIEW OF SYSTEMS: Negative for chest pain. No shortness of breath. Positive for nausea. No vomiting. No diarrhea. No constipation. No rectal bleeding. No hematochezia. No hematemesis. The patient has not had passed a bowel movement or gas yet. PHYSICAL EXAMINATION: VITAL SIGNS: Temperature is 98.0, pulse of 75, respirations of 18, blood pressure is 125/71, pulse oximetry of 97%. HEENT: Normocephalic, atraumatic. Pupils are reactive to light and accommodation. NG tube to suction. CVS: S1, S2 normal. Regular rhythm. ABDOMEN: Nontender and nondistended. Negative bowel sounds. EXTREMITIES: No clubbing, no cyanosis, no edema. LABORATORY VALUES: The patient's white count is 4.39, hemoglobin 13.3, hematocrit 38.7. Chemistries; sodium 135, potassium 3.6, BUN of 13, creatinine 0.82. Toxicology was negative. Urine, blood positive and rbc's 21-50 and white count 6-10. Urine blood was still positive. Currently, the patient is on Rocephin q.24 hours, simethicone and Ketoralac. She is on NG tube. ASSESSMENT/PLAN: 1. Small bowel obstruction. 2. History of hypertension and hyperlipidemia. Medications unknown. The patient also has history of HIV, which she gets her medication from [facility] and at this time not available. Continue with NG tube. The patient has a KUB scheduled for today. We will continue to monitor the patient. Further recommendation per clinical course and also check her labs today. Saturnino Hopson MD ASJ/MODMaria Isabel /[id number]
--- NOTE | 2018-09-26 07:13 | Diagnostic Imaging Report ---
Exam: Abdominal film Clinical History: Small bowel obstruction Comparison: 09/25/2018 DISCUSSION: Stable position of enteric tube. The tip projects over the gastric body. The bowel gas pattern shows no dilated, air-filled loops of bowel, and is overall similar to 09/25/2018. Cholelithiasis. Regional skeletal structures are intact. IMPRESSION: Stable bowel gas pattern relative to 09/25/2018. Signed by: Dr. Saturnino Dickson M.D. on 09/26/2018 7:09 AM
[2018-09-26 07:28] LABS: ALANINE AMINOTRANSFERASE 38 IU/L (0-55); ALBUMIN 3.3 g/dL (3.5-5.0); ALBUMIN/GLOBULIN RATIO 0.9 (0.8-2.0); ALKALINE PHOSPHATASE 79 IU/L (40-150); ANION GAP 12.6 mmol/L (8-16); BLOOD UREA NITROGEN 14 mg/dL (7-26); BUN/CREATININE RATIO 18 (6-25); CALCIUM 8.9 mg/dL (8.4-10.2); CARBON DIOXIDE 24 mmol/L (22-29); CHLORIDE 107 mmol/L (98-107); CREATININE, SERUM 0.78 mg/dL (0.57-1.11); EST GLOMERULAR FILTRATION RATE > 60 ML/MIN (60-); GLUCOSE 82 mg/dL (74-118); MAGNESIUM 2.5 MG/DL (1.3-2.1); POTASSIUM 3.6 mmol/L (3.5-5.1); SODIUM 140 mmol/L (136-145)
[2018-09-26 07:48] LABS: FREE THYROXINE INDEX 1.9965 (1.4-3.8); THYROID STIMULATING HORMONE 0.875 uIU/mL (0.350-4.940)
--- NOTE | 2018-09-26 15:51 | Diagnostic Imaging Report ---
Abdomen/KUB INDICATION: ^ABD PAIN AFTER EATING CHOCOLATE ^Y COMPARISON: None. FINDINGS: Medical Devices: None Bowel: Unremarkable bowel gas pattern. No dilated bowel loops. No pneumatosis. Free air: Normal. Calcifications: Poorly defined calcifications in the medial right upper quadrant may correspond to gallstones. These calcifications measure approximately 2 cm. Organomegaly: None Lung bases: Clear Bones: Unremarkable IMPRESSION: Unremarkable bowel gas pattern. Calcifications in the medial right upper quadrant may correspond to cholelithiasis. Signed by: Dr. Solomon Snell MD on 09/25/2018 2:34 AM
--- NOTE | 2018-09-26 16:04 | NUR ---
GAVE PACKET OF INFORMATION WITH COMMUNITY [employer]OURCES FOR ASSISTANCE WITH LOW TO NO INCOME TO PATIENT. RESOURCES THAT PATIENT MAY BE ABLE TO FOLLOW UP UPON DISCHARGE. PT EDUCATED ON EACH RESOURCE AND UNDERSTANDING HOW TO FOLLOW UP TO SEE IF QUALIFIED FOR EACH RESOURCE.
--- NOTE | 2018-09-26 19:00 | NUR ---
patient received awake, alert, sitting up in bed. no c/o pain noted at this time. ivf continue to infuse without difficulty. ngt remains to low continuous suction with drk brown secretions noted. pm assessment complete. patient instructed to call for assistance when needed.
[2018-09-27 00:10] VITALS: BP 142/63
[2018-09-27] MEDS: SODIUM CHLORIDE 0.9% 1000ML 1,000 ML IV SCH ×3 (00:20→12:23)
[2018-09-27] MEDS: KETOROLAC TROMETHAMINE 30 MG/ML VIAL IV PRN (00:20)
--- NOTE | 2018-09-27 00:20 | NUR ---
patient medicated with toradol 30 mg iv for c/o abd pain / at this time.
[2018-09-27] MEDS: SODIUM CHLORIDE 0.9% 250ML IRRIG IR SCH ×5 (01:00→16:31)
[2018-09-27] MEDS: CEFTRIAXONE SOD 1 GM/NS 50 ML 50 ML IV SCH (03:45)
[2018-09-27 04:29] VITALS: BP 120/72
[2018-09-27 06:22] LABS: BASOPHILS % 0.2 % (0.0-1.0); EOSINOPHILS # (AUTO) 0.1 (0.0-0.4); EOSINOPHILS % 1.4 % (0.0-6.0); HEMOGLOBIN 11.7 g/dL (12.0-16.0); LYMPHOCYTES # (AUTO) 1.7 (1.0-3.2); LYMPHOCYTES % 21.2 % (18.0-39.1); MEAN CORPUSCULAR HEMOGLOBIN 28.6 pg (28-32); MEAN CORPUSCULAR HGB CONC 33.4 g/dL (31-35); MEAN CORPUSCULAR VOLUME 85.6 fL (81-99); MONOCYTES # (AUTO) 0.5 (0.2-0.8); MONOCYTES % 6.7 % (4.4-11.3); NEUTROPHILS # (AUTO) 5.6 (2.1-6.9); PLATELET COUNT 103 x10e3/uL (140-360); RED BLOOD COUNT 4.09 x10e6/uL (3.6-5.1); RED CELL DISTRIBUTION WIDTH 13.4 % (11.7-14.4)
[2018-09-27 06:38] LABS: ANION GAP 13.4 mmol/L (8-16); BLOOD UREA NITROGEN 18 mg/dL (7-26); BUN/CREATININE RATIO 28 (6-25); CALCIUM 8.5 mg/dL (8.4-10.2); CARBON DIOXIDE 21 mmol/L (22-29); CHLORIDE 106 mmol/L (98-107); CREATININE, SERUM 0.65 mg/dL (0.57-1.11); EST GLOMERULAR FILTRATION RATE > 60 ML/MIN (60-); GLUCOSE 60 mg/dL (74-118); POTASSIUM 3.4 mmol/L (3.5-5.1); SODIUM 137 mmol/L (136-145)
--- NOTE | 2018-09-27 07:18 | NUR ---
pt alert resp even and unlabored at this time no distress noted, pt has NGT tube to LIWS, no complaints and no pain when asked, call light in reach.
[2018-09-27 08:16] VITALS: BP 140/66
--- NOTE | 2018-09-27 09:11 | NUR ---
pt off unit for kub.
--- NOTE | 2018-09-27 09:13 | Progress Note ---
DATE: SUBJECTIVE: The patient is a 53-year-old female, who comes in with small bowel obstruction. Currently, the patient has NG tube in place. Did pass some gas according to her. No bowel movements yet. The patient is n.p.o. Currently on Rocephin for suspected urinary tract infection. The patient has not taken any of her home medications. OBJECTIVE: VITAL SIGNS: Stable. The patient is afebrile. Temperature is 97.6, pulse of 92, respirations 16, blood pressure is 120/72, pulse oximetry of 98%. HEENT: Normocephalic, atraumatic. NG tube in place. CVS: S1 and S2 normal. Regular rate and rhythm. ABDOMEN: Nontender, nondistended, and soft. Bowel sounds are very sluggish. EXTREMITIES: No clubbing. No cyanosis. No edema. LABORATORY DATA: Today's white count is 8.03, hemoglobin of 11.7, and hematocrit of 35.0. Chemistries, the patient's sodium is 137, potassium is 3.4, BUN of 18, creatinine 0.65, glucose 60, calcium is 8.5, and magnesium is 2.0. Thyroid labs are normal. IMAGING STUDIES: Shows abdominal x-ray done from yesterday shows stable bowel pattern compared to 09/25/2018. ASSESSMENT AND PLAN: 1. Small bowel obstruction. Continue with n.p.o., NG tube. We will do a surgical evaluation. For right now, we will probably keep the tube in. 2. Hypertension, hyperlipidemia, and history of human immunodeficiency virus. We will continue to monitor her white count. Also, we will continue monitoring her electrolytes. Replace potassium today and glucose is low, might change fluids accordingly. Further recommendation per clinical course. We will continue to monitor the patient and continue to monitor the patient along with consultants. MD MITZY Bach/GORDO /[id number]
--- NOTE | 2018-09-27 09:31 | NUR ---
pt returned to unit
--- NOTE | 2018-09-27 10:05 | Diagnostic Imaging Report ---
Exam: Abdominal film; 2 views Clinical History: Small bowel obstruction Comparison: 09/26/2018 DISCUSSION: Stable position of enteric tube with the tip below the diaphragm. The bowel gas pattern shows no dilated, air-filled loops of bowel, and is overall similar to the prior study. Right upper quadrant calcification compatible with large calcified gallstones. Regional skeletal structures are intact. IMPRESSION: Nonobstructive bowel gas pattern. Signed by: Dr. Ilir Moreland DO on 09/27/2018 10:02 AM
--- NOTE | 2018-09-27 10:10 | NUR ---
dr. bony bledsoe here to see pt.
[2018-09-27] MEDS ORDERED: BISACODYL 10 MG SUPP PR ONE (10:15)
--- NOTE | 2018-09-27 10:15 | NUR ---
pt NGT out at this time. pt tolerated well.
[2018-09-27 12:03] VITALS: BP 147/77
[2018-09-27 15:49] VITALS: BP 122/69
--- NOTE | 2018-09-27 15:55 | NUR ---
Visit made by the Spiritual Care Department Pastoral Visitor, Parris Fisher. PV provided pastoral presence, prayer, hospitality, and supportive listening. Pastoral Visitor informed pt/family of the scope of Pediatric Physical Therapist Services and availability. HERBIE SHERWOOD Emergency Management Program Specialist Spiritual Care Department O: [phone] Pager: [phone] ([phone] number calling from)
--- NOTE | 2018-09-27 19:00 | NUR ---
iv d/c'd and clean dressing applied. patient discharged home with family at this time. vss. no c/o pain noted. patient escorted to vehicle via wheelchair with family.
--- NOTE | 2018-09-27 19:00 | NUR ---
report given to oncoming nurse,for continued care.
== END 2018-09-27 19:00 | disposition home or self-care (01) | DRG 445 ==
LOC: ER 23:49 → ERHOLD 09-25 05:15 → MED/SURG3 09-25 06:10 → OBSVTOIN 09-27 10:10
PROVIDERS: ADMIT Family Medicine; ATTEND Family Medicine
DX: K80.50 Calculus of bile duct without cholangitis or cholecystitis without obstruction (principal); N39.0 Urinary tract infection, site not specified; I10 Essential (primary) hypertension; E78.5 Hyperlipidemia, unspecified; D69.6 Thrombocytopenia, unspecified; K76.0 Fatty (change of) liver, not elsewhere classified; E87.6 Hypokalemia; Z21 Asymptomatic human immunodeficiency virus [HIV] infection status; Z83.3 Family history of diabetes mellitus; Z82.49 Family history of ischemic heart disease and other diseases of the circulatory system; Z83.438 Family history of other disorder of lipoprotein metabolism and other lipidemia
CPT/HCPCS: 36415; 74018; 74176; 80048; 80053; 80307; 81001; 82150; 83690; 83735; 84436; 84443; 84479; 85025; 87086; 96374; 99284; G0378; J0696; J1885; J7030

== ENCOUNTER 2022-08-24 09:57 | Emergency (ER) | payer SELFPAY ==
[~2022-08-24] VITALS: Ht 157.5 cm; Wt 53.1 kg
[~2022-08-24 09:57] MED LIST changes: +ATORVASTATIN CA10 MG PO; +BACTRIM DS TAB1 EACH PO; +Descovy PO; +FENOFIBRATE160 MG PO; +LISINOPRIL20 MG PO; +PYRIDIUM100 MG PO; +TIVICAY PO
[2022-08-24] MEDS ORDERED: SODIUM CHLORIDE 0.9% 1000ML 1,000 ML IV ONE (10:30)
[2022-08-24 10:48] LABS: BASOPHILS % 0.3 % (0.0-1.0); EOSINOPHILS # (AUTO) 0.1 (0.0-0.4); EOSINOPHILS % 0.9 % (0.0-6.0); HEMATOCRIT 41.7 % (34.2-44.1); HEMOGLOBIN 13.9 g/dL (12.0-16.0); LYMPHOCYTES # (AUTO) 2.5 (1.0-3.2); LYMPHOCYTES % 37.9 % (18.0-39.1); MEAN CORPUSCULAR HEMOGLOBIN 29.3 pg (28-32); MEAN CORPUSCULAR HGB CONC 33.3 g/dL (31-35); MONOCYTES # (AUTO) 0.3 (0.2-0.8); MONOCYTES % 4.5 % (4.4-11.3); NEUTROPHILS # (AUTO) 3.7 (2.1-6.9); NEUTROPHILS % 56.2 % (38.7-80.0); PLATELET COUNT 187 x10e3/uL (140-360); RED BLOOD COUNT 4.74 x10e6/uL (3.6-5.1); RED CELL DISTRIBUTION WIDTH 12.2 % (11.7-14.4)
[2022-08-24 10:50] LABS: CLARITY,URINE CLEAR (CLEAR); COLOR,URINE YELLOW (YELLOW); LEUKOCYTE ESTERASE ,URINE NEGATIVE (NEGATIVE); NITRITE,URINE NEGATIVE (NEGATIVE); PROTEIN,URINE DIPSTICK NEGATIVE (NEGATIVE)
[2022-08-24 10:51] LABS: BACTERIA,URINE FEW /HPF; EPITHELIAL CELLS,URINE FEW /LPF; KETONES,URINE NEGATIVE (NEGATIVE); RBC,URINE 21-50 /HPF (0-5); URINE UROBILINOGEN 0.2 mg/dL (0.2 - 1); WBC,URINE (MAN) 0-5 /HPF (0-5)
[2022-08-24 11:05] LABS: ALBUMIN 4.4 g/dL (3.5-5.0); ALBUMIN/GLOBULIN RATIO 1.2 (0.8-2.0); ANION GAP 12.6 mmol/L (8-16); CALCIUM 10.2 mg/dL (8.4-10.2); CREATININE, SERUM 0.87 mg/dL (0.57-1.11); POTASSIUM 3.6 mmol/L (3.5-5.1)
[2022-08-24] MEDS ORDERED: IOPAMIDOL 370 MG/ML 100 ML INFUS..BTL INJ ONE (12:16)
== END 2022-08-24 13:37 | disposition home or self-care (01) ==
LOC: ER 10:04
DX: R10.32 Left lower quadrant pain (principal); R11.0 Nausea; I10 Essential (primary) hypertension; E78.5 Hyperlipidemia, unspecified; B20 Human immunodeficiency virus [HIV] disease
CPT/HCPCS: 36415; 74177; 80053; 81001; 83690; 85025; 99284; J7030; Q9967